=== PATIENT | female | born 1950 | race Caucasian/White ===

== ENCOUNTER → 2018-01-18 | Outpatient (CLI) | payer MEDICARE, OTHER ==
[2018-01-18 12:16] LABS: ABSOLUTE BASOPHILS # (AUTO) 0.2 10^3/uL (0.0-0.2); ABSOLUTE EOSINOPHILS # (AUTO) 0.4 10^3/uL (0.0-0.6); ABSOLUTE LYMPHOCYTES (AUTO) 1.4 10^3/uL (0.5-4.7); ABSOLUTE MONOCYTES (AUTO) 0.9 10^3/uL (0.1-1.4); ABSOLUTE NEUT (AUTO) 8.7 10^3/uL (1.7-8.2); BASOPHILS % (AUTO) 1.4 % (0-2); EOSINOPHILS % (AUTO) 3.3 % (0-6); HEMATOCRIT 33.9 % (36.0-47.0); HEMOGLOBIN 11.7 g/dL (12.0-15.5); LYMPHOCYTES % (AUTO) 11.8 % (13-45); MEAN CORPUSCULAR HEMOGLOBIN 35.7 pg (27.0-33.4); MEAN CORPUSCULAR HGB CONC 34.5 g/dL (32.0-36.0); MEAN CORPUSCULAR VOLUME 104 fl (80-97); PLATELET COUNT 523 10^3/uL (150-450); RED BLOOD COUNT 3.28 10^6/uL (3.72-5.28); SEGMENTED NEUTROPHILS % (AUTO) 75.5 % (42-78); TOTAL CELLS COUNTED % (AUTO) 100 %; WHITE BLOOD COUNT 11.5 10^3/uL (4.0-10.5)
[2018-01-18 13:11] LABS: ERYTHROCYTE SEDIMENTATION RATE 100 mm/hr (0-30)
== END ==
LOC: OD 11:39
PROVIDERS: ATTEND Physician Assistant Surgical
DX: T84.52XA Infection and inflammatory reaction due to internal left hip prosthesis, initial encounter (principal); Z96.649 Presence of unspecified artificial hip joint
CPT/HCPCS: 36415; 85025; 85652; 86140

== ENCOUNTER → 2018-02-02 | Day surgery (SDC) | payer MEDICARE, OTHER ==
--- NOTE | 2018-02-02 15:57 | RADIOLOGY REPORT (SQ) ---
EXAM DESCRIPTION: FLUORO/NEEDLE PLACEMENT; INJECT/ASPIR HIP/SHLDR/KNEE COMPLETED DATE/TIME: 02/02/2018 3:41 pm REASON FOR STUDY: T84.52XA INFECT/INFLM REACTION DUE TO INTERNAL LEFT HIP PROSTH, INIT T84.52XA INF ECT/INFLM REACTION DUE TO INTERNAL LEFT HIP PROS COMPARISON: None. FLUOROSCOPY TIME: 2.9 MINUTES 1 digital radiographic images saved to PACS. TECHNIQUE: Fluoroscopic guided left hip aspiration LIMITATIONS: None. PROCEDURE: After written consent and assessment were obtained, the patient was brought into the fluo roscopy room and placed supine on the table. The patient's left hip was prepped in a sterile fashion with ChloraPrep. Sterile barrier technique employed. Left hip joint space entry site was selected under live fluoroscopic guidance. The entry site was anesthetized with 1% lidocaine. A 22 gauge needl e was advanced through the skin and into the left hip joint. The left hip joint space was washed wit h sterile preservative free saline, and injected fluid was aspirated, and sent to the lab for Gram st ain culture and sensitivity. The needle was removed and a sterile bandage was placed of the site. S pecimens were sent to the lab for testing. A fluoroscopic spot image was saved to PACS during the pr ocedure, demonstrating a left hip replacement with cerclage wires over the proximal left femur. Ther e is demineralization of the left proximal femur with periosteal new bone formation. . FINDINGS: Left hip joint space aspiration, specimen sent to the lab for testing. IMPRESSION: Left hip joint space aspiration, specimen sent to the lab for testing. COMMENT: Patient medication list reviewed: Yes- Quality ID# [id number]:Eligible professional attests to doc umenting in the medical record they obtained, updated, or reviewed the patient's current medications. . Quality ID 145: Final reports for procedures using fluoroscopy that document radiation exposure luis chilango, or exposure time and number of fluorographic images (if radiation exposure indices are not avail able) TECHNICAL DOCUMENTATION: JOB ID: [id number] [employer]- All Rights Reserved Reading location - IP/workstation name: [email or web address]
== END ==
LOC: RAD 13:13
PROVIDERS: ATTEND Physician Assistant Surgical
DX: T84.52XA Infection and inflammatory reaction due to internal left hip prosthesis, initial encounter (principal); Y83.8 Other surgical procedures as the cause of abnormal reaction of the patient, or of later complication, without mention of misadventure at the time of the procedure
CPT/HCPCS: 20610; 77002; 87070; 87075; 87205